=== PATIENT | male | born 1960 | race Caucasian/White ===

== ENCOUNTER 2020-03-11 11:02 | Emergency (ER) | payer OTHER ==
[~2020-03-11] VITALS: Ht 170.2 cm; Wt 83.9 kg
[2020-03-11 11:04] VITALS: BP 102/68
[2020-03-11] MEDS ORDERED: DOXYCYCLINE 10100 MG PO (11:24)
[2020-03-11] MEDS ORDERED: IBUPROFEN 600600 M1 PO (11:24)
[2020-03-11] MEDS ORDERED: ZOLOFT 50 MG TA50 MG PO (11:30)
[2020-03-11] MEDS ORDERED: IRBESARTAN-HCT1 EAC1 PO (11:30)
[2020-03-11] MEDS ORDERED: LITE COAT ASPI325 MG PO (11:31)
[2020-03-11] MEDS ORDERED: NORVASC10 MG PO (11:31)
[2020-03-11] MEDS ORDERED: ROSUVASTATIN CA20 MG PO (11:31)
== END 2020-03-11 11:32 | disposition home or self-care (01) ==
LOC: ER 11:02
DX: L03.115 Cellulitis of right lower limb (principal); I25.2 Old myocardial infarction; I10 Essential (primary) hypertension; E78.5 Hyperlipidemia, unspecified; Z79.899 Other long term (current) drug therapy; Z79.82 Long term (current) use of aspirin

== ENCOUNTER → 2021-04-16 | Outpatient (CLI) | payer OTHER ==
[~2021-04-16] MED LIST: DOXYCYCLINE 10100 MG PO; IBUPROFEN 600600 M1 PO; IRBESARTAN-HCT1 EAC1 PO; LITE COAT ASPI325 MG PO; NORVASC10 MG PO; ROSUVASTATIN CA20 MG PO; ZOLOFT 50 MG TA50 MG PO
== END ==
LOC: SJCVCIMAG 08:13
PROVIDERS: ATTEND Internal Medicine
DX: R00.0 Tachycardia, unspecified (principal); I25.10 Atherosclerotic heart disease of native coronary artery without angina pectoris; I10 Essential (primary) hypertension; E78.5 Hyperlipidemia, unspecified; R06.00 Dyspnea, unspecified; D64.9 Anemia, unspecified; K21.9 Gastro-esophageal reflux disease without esophagitis; Z95.1 Presence of aortocoronary bypass graft; Z79.82 Long term (current) use of aspirin; Z79.899 Other long term (current) drug therapy; Z72.89 Other problems related to lifestyle